=== PATIENT | male | born 2000 | race Caucasian/White ===

== ENCOUNTER 2019-09-06 18:46 | Emergency (ER) | payer MEDICAID ==
[~2019-09-06] VITALS: Ht 172.7 cm; Wt 97.1 kg
[2019-09-06 19:10] VITALS: Ht 172.7 cm; Wt 97.1 kg
[2019-09-06 19:58] VITALS: BP 130/84
== END 2019-09-06 19:58 | disposition home or self-care (01) ==
LOC: ED 18:46
DX: R04.0 Epistaxis (principal); R50.9 Fever, unspecified; R42 Dizziness and giddiness; Z88.0 Allergy status to penicillin